=== PATIENT | male | born 1960 | race Hispanic/Latino ===

== ENCOUNTER 2017-02-24 17:12 | Emergency (ER) | payer SELFPAY ==
--- NOTE | 2017-02-24 18:32 | RAD ---
RIGHT SHOULDER THREE VIEW 02/24/17 HISTORY: Right sided neck and arm pain. COMPARISON: Shoulder radiograph 03/11/16. FINDINGS: Moderate degenerative disease acromioclavicular joint. No acute fracture or malalignment. Subchondral cyst of the greater tuberosity of the humerus are present. The visualized ribs are unremarkable. IMPRESSION: Moderate degenerative disease. No acute fracture or malalignment. POS: [facility]
== END 2017-02-24 18:32 | disposition home or self-care (01) ==
LOC: ERS 17:12
DX: M25.511 Pain in right shoulder (principal); G89.29 Other chronic pain

== ENCOUNTER 2017-04-16 01:22 | Emergency (ER) | payer SELFPAY ==
[2017-04-16] MEDS ORDERED: Ketorolac Tromethamine 30 MG/ML VIAL ONE (03:01)
--- NOTE | 2017-04-16 08:23 | RAD ---
RIGHT SHOULDER THREE VIEWS: INDICATIONS: Pain. COMPARISON: 02/24/2017 FINDINGS: No fracture or dislocation. 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 No significant interval change. IMPRESSION: No acute osseous abnormality of the right shoulder. POS: [facility]
== END 2017-04-16 03:22 | disposition home or self-care (01) ==
LOC: ERS 01:22
DX: S43.101A Unspecified dislocation of right acromioclavicular joint, initial encounter (principal); X50.9XXA Other and unspecified overexertion or strenuous movements or postures, initial encounter
CPT/HCPCS: 96372; J1885

== ENCOUNTER 2019-02-21 13:55 | Emergency (ER) | payer SELFPAY ==
[2019-02-21 14:29] LABS: Bacteria/HPF None Seen HPF (None Seen); Bilirubin Negative (Negative); Blood, Urine Negative (Negative); Clarity Clear (Clear); Glucose, Urine (Dipstick) Normal (Negative); Leukocyte 25 Leu/uL (Negative); Nitrite Negative (Negative); Protein, Urine (Dipstick) 20 mg/dL (Neg-Trace); RBC/HPF 0-3 HPF (0-3); Squamous Epithelial 0-3 HPF (0-3); WBC/HPF 0-3 HPF (0-3)
[2019-02-21 14:43] LABS: #Basophils 0.1 thou/uL (0.0-0.2); #Eosinphils 0.1 thou/uL (0.0-0.7); #Lymphocytes 2.3 thou/uL (1.20-3.40); #Monocytes 0.6 thou/uL (0.11-0.59); #Neutrophils 5.5 thou/uL (1.40-6.50); %Basophils 0.7 % (0.0-1.0); %Eosinophils 1.6 % (0.0-10.0); %Lymphocytes 26.6 % (21.0-51.0); %Monocytes 7.3 % (0.0-10.0); %Neutrophils 63.8 % (42.0-75.0); Hemoglobin 15.3 g/dL (14.0-18.0); Mean Corpuscular HGB CONC 33.7 g/dL (32.0-36.0); Mean Corpuscular Hemoglobin 30.6 pg (27.0-31.0); Mean Corpuscular Volume 90.9 fL (78.0-98.0); Mean Platelet Volume 8.5 fL (7.4-10.4); Platelet Count 193 thou/uL (130-400); RBC Distribution Width 11.8 % (11.5-14.5); White Blood Cell (WBC) Count 8.6 thou/uL (4.8-10.8)
[2019-02-21 15:06] LABS: ALT (SGPT) 17 U/L (8-55); AST (SGOT) 22 U/L (5-34); Albumin 4.8 g/dL (3.5-5.0); Alkaline Phosphatase 100 U/L (40-110); Anion Gap 11 mmol/L (10-20); BUN (Urea Nitrogen) 15 mg/dL (8.4-25.7); Bilirubin, Total 0.8 mg/dL (0.2-1.2); Calc. Creatinine Clearance 0 mL/min (70-130); Calcium 9.7 mg/dL (7.8-10.44); Carbon Dioxide 29 mmol/L (22-29); Chloride 105 mmol/L (98-107); Estimated GFR-MDRD 72; Globulin 3.2 g/dL (2.4-3.5); Glucose 81 mg/dL (70-105); Lipase 16 U/L (8-78); Potassium 4.2 mmol/L (3.5-5.1); Sodium 141 mmol/L (136-145)
[2019-02-21] MEDS ORDERED: cefTRIAXone\\ROCEPHIN 250 MG VIAL ONE (15:14)
[2019-02-21] MEDS ORDERED: Azithromycin 250 MG TAB ONE (15:14)
[2019-02-21] MEDS ORDERED: Iopamidol-370 76% 500 ML 1 ML ONE (15:18)
--- NOTE | 2019-02-21 15:25 | CT ---
CT abdomen and pelvis: 02/21/2019 COMPARISON: None HISTORY: Lower abdominal pain TECHNIQUE: Axial CT imaging at 5 mm intervals from lung bases through pubic symphysis with IV contras t. Coronal and sagittal reformatted imaging obtained. FINDINGS: Imaged lung bases are unremarkable. No free intraperitoneal air or fluid. Cholecystectomy clips present. Hypodensity of the hepatic parenchyma noted suggesting steatosis. The spleen, pancreas, adrenal gland s, and kidneys demonstrate no acute findings. There is a small posterior left renal midpole hypodensity 8 mm in transverse dimension, too small to characterize. Evaluation of the bowel is limited without oral contrast media. The appendix is unremarkable. The asc ending colon is under distended and poorly assessed. No CT evidence of significant bowel inflammatory change. Vascular structures of abdomen/pelvis appear patent. No lymphadenopathy noted within the abdomen/pelv is. Review of the osseous structures demonstrates bilateral L5 pars defects. There is disc space narrowin g with degenerative endplate change and vacuum disc formation at L5-S1 with mild anterolisthesis measuring 5 mm. No acute osseous abnormality. IMPRESSION: No acute findings are noted. Incidental findings as detailed above.
== END 2019-02-21 16:54 | disposition home or self-care (01) ==
LOC: ERS 13:55
DX: R31.0 Gross hematuria (principal)
CPT/HCPCS: 74177; 80053; 81003; 81015; 83690; 85025; 96374; J0696; Q9967

== ENCOUNTER 2019-04-23 11:17 | Emergency (ER) | payer SELFPAY ==
--- NOTE | 2019-04-23 13:10 | RAD ---
Exam: XR Humerus Rt 2 View STANDARD HISTORY: Injury to right arm. Patient states knot in bicep region right arm after a popping sound one day ago. Tingling in fingertips. COMPARISON: None FINDINGS: There is mild right acromioclavicular joint osteoarthritis. No acute fracture, dislocation, or other acute osseous abnormality is identified. IMPRESSION: 1. No acute osseous abnormality is identified. 2. If there is concern for biceps muscle or tendon injury, MRI would be better study of choice for fu rther evaluation.
== END 2019-04-23 13:30 | disposition home or self-care (01) ==
LOC: ERS 11:17
DX: S46.211A Strain of muscle, fascia and tendon of other parts of biceps, right arm, initial encounter (principal); X58.XXXA Exposure to other specified factors, initial encounter

== ENCOUNTER 2022-02-16 14:31 | Emergency (ER) | payer SELFPAY ==
[2022-02-16 15:55] LABS: #Eosinphils 0.1 thou/uL (0.0-0.7); #Lymphocytes 2.8 thou/uL (1.20-3.40); #Monocytes 0.7 thou/uL (0.11-0.59); #Neutrophils 5.8 thou/uL (1.40-6.50); %Basophils 0.2 % (0.0-1.0); %Eosinophils 1.1 % (0.0-10.0); %Lymphocytes 29.5 % (21.0-51.0); %Monocytes 7.4 % (0.0-10.0); %Neutrophils 61.8 % (42.0-75.0); Hemoglobin 15.2 g/dL (14.0-18.0); Mean Corpuscular HGB CONC 33.5 g/dL (32.0-36.0); Mean Corpuscular Hemoglobin 31.3 pg (27.0-31.0); Mean Corpuscular Volume 93.6 fl (78.0-98.0); Mean Platelet Volume 8.2 fL (7.4-10.4); Platelet Count 208 10x3/uL (130-400); Red Blood Cell (RBC) Count 4.85 mill/uL (4.70-6.10); White Blood Cell (WBC) Count 9.4 10x3/uL (4.8-10.8)
[2022-02-16 16:17] LABS: ALT (SGPT) 27 U/L (8-55); AST (SGOT) 22 U/L (5-34); Albumin 4.3 g/dL (3.5-5.0); Alkaline Phosphatase 83 U/L (40-110); Anion Gap 16 mmol/L (10-20); BUN (Urea Nitrogen) 19 mg/dL (8.4-25.7); Bilirubin, Total 0.6 mg/dL (0.2-1.2); CK (CPK) 152 U/L (30-200); Calc. Creatinine Clearance 0 mL/min (70-130); Calcium 9.5 mg/dL (7.8-10.44); Carbon Dioxide 24 mmol/L (22-29); Chloride 105 mmol/L (98-107); Estimated GFR 68; Globulin 3.2 g/dL (2.4-3.5); Glucose 93 mg/dL (70-105); Potassium 4.2 mmol/L (3.5-5.1); Protein, Total 7.5 g/dL (6.0-8.3); Sodium 141 mmol/L (136-145)
== END 2022-02-16 16:38 | disposition home or self-care (01) ==
LOC: ERS 14:31
DX: M25.511 Pain in right shoulder (principal); F17.210 Nicotine dependence, cigarettes, uncomplicated
CPT/HCPCS: 36415; 80053; 82550; 85025

== ENCOUNTER 2023-06-05 11:40 | Emergency (ER) | payer OTHER, SELFPAY ==
[2023-06-05] MEDS ORDERED: Ketorolac Tromethamine 30 MG (1 mL) VIAL ONE (13:35)
== END 2023-06-05 13:38 | disposition home or self-care (01) ==
LOC: ERS 11:40
DX: S80.911A Unspecified superficial injury of right knee, initial encounter (principal); F17.210 Nicotine dependence, cigarettes, uncomplicated; X58.XXXA Exposure to other specified factors, initial encounter
CPT/HCPCS: 96372; J1885